=== PATIENT | male | born 1995 | race Two or more races ===

== ENCOUNTER 2021-10-16 23:56 | Emergency (ER) | payer SELFPAY ==
[~2021-10-16] VITALS: Ht 177.8 cm; Wt 84.8 kg
[2021-10-17 00:04] VITALS: BP 132/79
--- NOTE | 2021-10-17 00:04 | NUR ---
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 Pt A/OX4. Tolerating R/A well with no SOB, or resp distress. Conencted PT to POX and monitor. Safety Measures in place.
[2021-10-17] MEDS ORDERED: KETOROLAC TROMETHAMINE INJ 30 MG/ML VIAL ONE (00:20)
--- NOTE | 2021-10-17 00:24 | NUR ---
RAC #18G S/L BLOOD COLLECTED AND SENT TO LAB. GAVE PT URINE CUP; AWAITING FOR URINE SAMPLE
[2021-10-17] MEDS ORDERED: IV NS 0.9% 1,000 ML BAG IV ONE (00:30)
[2021-10-17] MEDS ORDERED: KETOROLAC TROMETHAMINE INJ 30 MG/ML VIAL IV ONE (00:30)
--- NOTE | 2021-10-17 00:30 | NUR ---
URINE COLLECTED AND SENT TO LAB
[2021-10-17 00:54] LABS: BASOPHILS % (AUTO) 0.1 % (0.0-2.0); EOSINOPHILS % (AUTO) 0.3 % (0.0-6.0); HEMATOCRIT 43 % (39-51); HEMOGLOBIN 15.1 g/dL (13.5-17.5); LYMPHOCYTES # (AUTO) 0.7 K/uL (0.8-4.8); LYMPHOCYTES % (AUTO) 11.6 % (20.0-44.0); MEAN CORPUSCULAR HGB CONC 35 g/dl (31.0-36.0); MEAN CORPUSCULAR VOLUME 88 fL (80-96); MONOCYTES # (AUTO) 0.2 K/uL (0.1-1.30); MONOCYTES % (AUTO) 3.2 % (2.0-12.0); NEUTROPHILS # (AUTO) 5.1 K/uL (1.8-8.9); NEUTROPHILS % (AUTO) 84.8 % (43.0-81.0); PLATELET COUNT (AUTO) 184 K/uL (150-450); RED BLOOD CELL COUNT(AUTO) 4.89 MIL/uL (4.5-6.0)
--- NOTE | 2021-10-17 01:04 | NUR ---
PT TAKEN TO CT VIA [facility]
--- NOTE | 2021-10-17 01:14 | NUR ---
PT RETURNED TO ER BED [address]
[2021-10-17 01:19] LABS: BILIRUBIN,URINE NEGATIVE (NEGATIVE); COLOR,URINE YELLOW (YELLOW); LEUKOCYTE ESTERASE ,URINE NEGATIVE (NEGATIVE); NITRITE, URINE NEGATIVE (NEGATIVE); PH,URINE 7.5 (5.0-8.0); PROTEIN,URINE TRACE mg/dl (NEGATIVE); UGLUCOSE NEGATIVE (NEGATIVE); UROBILINOGEN,URINE 0.2 EU/dL (0.2)
[2021-10-17 01:29] LABS: ALBUMIN 4.3 g/dL (3.4-5.0); BILIRUBIN,DIRECT 0.2 mg/dL (0.0-0.2); BILIRUBIN,TOTAL 0.5 mg/dL (0.2-1.0); CALCIUM, SERUM 9.1 mg/dL (8.5-10.1); POTASSIUM 3.8 mmol/L (3.5-5.1); TOTAL PROTEIN, SERUM 7.7 g/dL (6.4-8.2)
--- NOTE | 2021-10-17 02:21 | NUR ---
Patient eloped from facility. ER Dr. Dima MCLAUGHLIN notified. Notified [employer] Pt eloped with IV.
--- NOTE | 2021-10-17 02:22 | NUR ---
CALLED [facility]. VP [employer] [phone] MADE AWARE OF THE PT ELOPED WITH AN Iv LINE IN POLACE. INCIDENT REPORT: [id number]
== END 2021-10-17 02:29 | disposition left against medical advice (07) ==
LOC: ER 23:59
DX: R10.9 Unspecified abdominal pain (principal)
CPT/HCPCS: 99285; 74176; 96374; 71045; 96361; 85025; 80048; 83690; 80076; 81003; 36415; J1885; J7030